=== PATIENT | male | born 1970 | race Caucasian/White ===

== ENCOUNTER → 2016-08-19 | Outpatient (CLI) | payer BC ==
[2016-08-19 20:36] LABS: ALT 29 U/L (21-72); AST 22 U/L (17-59); Alkaline Phosphatase 84 U/L (38-126); Anion Gap 11 mmol/L; Blood Urea Nitrogen 14 mg/dL (9-20); Calcium 9.3 mg/dL (8.4-10.2); Carbon Dioxide 28 mmol/L (22-30); Chloride 104 mmol/L (98-107); Cholesterol 157 mg/dL (<200); Glucose 76 mg/dL (74-99); HDL Cholesterol 50 mg/dL (40-60); Non-African American GFR(MDRD) >60 (>60 ml/min/1.73 sqM); Potassium 4.5 mmol/L (3.5-5.1); Sodium 143 mmol/L (137-145); Total Bilirubin 0.8 mg/dL (0.2-1.3); Total Protein 7.7 g/dL (6.3-8.2); Triglycerides 52 mg/dL (<150)
[2016-08-19 20:43] LABS: CH 30.8; Mean Platelet Volume 8.9; RDW 12.2 % (11.5-15.5)
[2016-08-19 20:46] LABS: Basophils % (A) 0 %; CHCM 34.1; Eosinophils # (A) 0.1 k/uL (0-0.7); Eosinophils % (A) 3 %; HCT 42.2 % (39.0-53.0); HDW 2.45; HGB 14.8 gm/dL (13.0-17.5); Luc # (Auto) 0.09; Luc % (Auto) 2; Lymphocytes # (A) 1.1 k/uL (1.0-4.8); Lymphocytes % (A) 25 %; MCH 31.8 pg (25.0-35.0); MCHC 35.1 g/dL (31.0-37.0); MCV 90.6 fL (80.0-100.0); Monocytes # (A) 0.4 k/uL (0-1.0); Monocytes % (A) 9 %; Neutrophils # (A) 2.7 k/uL (1.3-7.7); Neutrophils % (A) 61 %; RBC 4.66 m/uL (4.30-5.90); WBC 4.4 k/uL (3.8-10.6); WBC (Perox) 4.25
== END | disposition home or self-care (01) ==
LOC: MMGSC 09:24
PROVIDERS: ATTEND Family Medicine
DX: Z00.00 Encounter for general adult medical examination without abnormal findings (principal)
CPT/HCPCS: 36415; 80053; 80061; 84439; 84443; 85025

== ENCOUNTER 2018-06-13 21:32 | Observation (INO) | payer BC ==
--- NOTE | 2018-06-13 23:19 | XR ---
EXAMINATION TYPE: XR KUB DATE OF EXAM: 06/13/2018 COMPARISON: 07/02/2014 HISTORY: Foreign body in the rectum TECHNIQUE: 2 views FINDINGS: Bowel gas pattern is normal. There is no sign of intestinal obstruction or pneumoperitoneum . I see no evidence of a radiopaque foreign body. There are no pathologic calcifications. IMPRESSION: Nonacute abdomen. No sign of a foreign body. No change.
--- NOTE | 2018-06-13 23:46 | ED ---
General Adult HPI - General Chief complaint: Abdominal Pain Stated complaint: fb in buttocks Time Seen by Provider: 06/13/18 22:10 Source: patient, RN notes reviewed Mode of arrival: ambulatory Limitations: no limitations - History of Present Illness Initial comments: This a 47-year-old male who presents emergency Department with a foreign body in his rectum. Patient states he has a 9 inch dildo which is approximately 2-1/ 2 inches in diameter in his rectum. Patient states there is a large flange on the end to prevent her from going all the way in however he pushed it all the way in by accident. Patient states this happened about 2-1/2-3 hours ago. Patient states his aggressively tried to remove it and he has quite a bit of bleeding down there now. Patient denies any abdominal pain but he states that he does have some discomfort in his rectum. - Related Data Home Medications Medication Instructions Recorded Confirmed No Known Home Medications 06/13/18 06/13/18 Allergies Allergy/AdvReac Type Severity Reaction Status Date / Time No Known Allergies Allergy Verified 07/02/14 22:38 Review of Systems ROS Statement: Those systems with pertinent positive or pertinent negative responses have been documented in the HPI. ROS Other: All systems not noted in ROS Statement are negative. Past Medical History Past Medical History: No Reported History History of Any Multi-Drug Resistant Organisms: MRSA Date of last positivie culture/infection: 01/08/18 MDRO Source:: MRSA LEG Past Surgical History: No Surgical Hx Reported Additional Past Surgical History / Comment(s): nasal sx Past Psychological History: No Psychological Hx Reported Smoking Status: Never smoker Past Alcohol Use History: Rare Past Drug Use History: None Reported General Exam - General Exam Comments Initial Comments: GENERAL: Patient is well-developed and well-nourished. Patient is nontoxic and well- hydrated and is in mild distress. EYES: The sclera were anicteric and conjunctiva were pink and moist. Extraocular movements were intact and pupils were equal round and reactive to light. Eyelids were unremarkable. ABDOMEN: Soft and nontender with normal bowel sounds. No palpable organomegaly was noted. There is no palpable pulsatile mass. RECTAL: On rectal exam there was a fair amount of blood coming from the rectum on digital exam I could feel the warm body approximately 3-4 inches in his rectum. SKIN: Skin is clear with no lesions or rashes and otherwise unremarkable. NEUROLOGIC: Patient is alert and oriented x3. Cranial nerves II through XII are grossly intact. Motor and sensory are also intact. MUSCULOSKELETAL: Normal extremities with adequate strength and full range of motion. No lower extremity swelling or edema. No calf tenderness. PSYCHIATRIC: Normal psychiatric evaluation. Limitations: no limitations Course Vital Signs 06/13/18 22:06 Temperature 98.1 F Pulse Rate 81 Respiratory 20 Rate Blood Pressure 104/66 O2 Sat by Pulse 99 Oximetry Medical Decision Making - Medical Decision Making Patient was placed in stirrups and told to hold his knees close to his chest a speculum was used and when I visualize the flange of the pill though I grabbed it with some forceps and gently pulled out it came out relatively easy but with a fair amount of blood. I did a computed tomography scan to rule out any free air there was none seen. Patient had a little bit of rectal bleeding/spoke with Dr. Yu she agreed to observe him overnight and check the morning. Disposition Clinical Impression: Rectal bleeding, Rectal foreign body Disposition: ADMITTED IP TO THIS HOSP Referrals: Yesenia Faith MD [Primary Care Provider] - 1-2 days Time of Disposition: 01:15
--- NOTE | 2018-06-14 00:34 | CT ---
EXAMINATION TYPE: CT abdomen pelvis wo con DATE OF EXAM: 06/14/2018 COMPARISON: 07/03/2014 HISTORY: foreign body CT DLP: 445.6 mGycm Automated exposure control for dose reduction was used. TECHNIQUE: Helical acquisition of images was performed from the lung bases through the pelvis. FINDINGS: Lung bases are clear. There is no pleural effusion. Heart size is normal. Liver spleen pancreas gallbladder appear normal. Bile ducts are not dilated. Stomach appears normal. There is no adrenal mass. There is 4 mm calcification posterior left kidney. There is no hydronephros is. There are tiny calcifications in the right kidney. There is no retroperitoneal adenopathy. Bladder distends smoothly. There is no free fluid in the pelvis. There is no inguinal hernia. I see n o intestinal wall thickening. There are no dilated loops. There is no evidence of a thickened appendi x. There is no mesenteric edema or adenopathy. The bony structures are intact. There is no evidence o f a intestinal foreign body. Bony pelvis is intact. IMPRESSION: NEGATIVE CT SCAN OF THE ABDOMEN AND PELVIS. THERE IS CLEARING OF RIGHT LOWER LOBE PNEUMONIA COMPARED TO OLD EXAM. NO EVIDENCE OF AN ABDOMINAL FOREIGN BODY. NONOBSTRUCTING RENAL CALCIFICATIONS.
[2018-06-14] MEDS ORDERED: SODIUM CHLORIDE 0.9% 1,000 ML IV ONE (01:15)
[2018-06-14 01:24] LABS: Basophils % (A) 0 %; Eosinophils % (A) 1 %; HCT 43.3 % (39.0-53.0); HGB 14.4 gm/dL (13.0-17.5); Lymphocytes % (A) 10 %; MCH 29.4 pg (25.0-35.0); MCHC 33.3 g/dL (31.0-37.0); MCV 88.4 fL (80.0-100.0); Mean Platelet Volume 7.3; Monocytes # (A) 0.5 k/uL (0-1.0); Monocytes % (A) 5 %; Neutrophils # (A) 7.5 k/uL (1.3-7.7); Neutrophils % (A) 83 %; Platelet Count 190 k/uL (150-450); RDW 12.5 % (11.5-15.5); WBC 9.1 k/uL (3.8-10.6)
[2018-06-14 02:27] VITALS: RESP 16
[2018-06-14 07:54] VITALS: BP 101/60; PULSE 63; TEMP 98.5
[2018-06-14 12:48] LABS: Basophils % (A) 0 %; Eosinophils # (A) 0.2 k/uL (0-0.7); Eosinophils % (A) 3 %; HGB 13.6 gm/dL (13.0-17.5); Lymphocytes # (A) 1.3 k/uL (1.0-4.8); Lymphocytes % (A) 24 %; MCH 29.9 pg (25.0-35.0); MCHC 33.2 g/dL (31.0-37.0); Mean Platelet Volume 7.4; Monocytes # (A) 0.4 k/uL (0-1.0); Monocytes % (A) 8 %; Neutrophils # (A) 3.5 k/uL (1.3-7.7); Neutrophils % (A) 63 %; Platelet Count 179 k/uL (150-450); RBC 4.56 m/uL (4.30-5.90); RDW 12.5 % (11.5-15.5); WBC 5.6 k/uL (3.8-10.6)
== END 2018-06-14 14:38 | disposition home or self-care (01) ==
LOC: EC 21:32 → 4SSUR 06-14 01:17
PROVIDERS: ADMIT Surgery Plastic and Reconstructive Surgery; ATTEND Surgery Plastic and Reconstructive Surgery
DX: T18.5XXA Foreign body in anus and rectum, initial encounter (principal); K62.5 Hemorrhage of anus and rectum; Z86.14 Personal history of Methicillin resistant Staphylococcus aureus infection; X58.XXXA Exposure to other specified factors, initial encounter
CPT/HCPCS: 99285; 36415; 85025; 74018; 74176; G0378

== ENCOUNTER → 2024-08-29 | Outpatient (CLI) | payer OTHER ==
--- NOTE | 2024-08-29 15:20 | XR ---
EXAMINATION TYPE: XR knee complete LT DATE OF EXAM: 08/29/2024 2:59 PM COMPARISON: None CLINICAL INDICATION: Male, 53 years old with history of M25.562 Pain left knee; PHH, pain TECHNIQUE: XR knee complete LT 3 views submitted. FINDINGS: Minimal osteophyte formation of the patella and tibial plateau. No evidence of any acute osseous pathology, soft tissue swelling, or joint effusion is noted. IMPRESSION: 1. No acute osseous pathology. 2. Minimal tricompartmental osteoarthritic changes. [facility], , 08/29/2024 3:17 PM
== END | disposition home or self-care (01) ==
LOC: RADXRMAIN 14:20
PROVIDERS: ATTEND Family Medicine
DX: M17.12 Unilateral primary osteoarthritis, left knee (principal)

== ENCOUNTER → 2024-08-30 | Outpatient (CLI) | payer OTHER ==
[2024-08-30 10:34] LABS: Basophils # (A) 0.03 X 10*3/uL (0.00-0.10); Basophils % (A) 0.7 %; Eosinophils # (A) 0.16 X 10*3/uL (0.04-0.35); Eosinophils % (A) 3.7 %; HCT 43.6 % (39.6-50.0); HGB 14.4 g/dL (13.0-17.0); Lymphocytes # (A) 1.21 X 10*3/uL (0.90-5.00); Lymphocytes % (A) 28.1 %; MCH 30.1 pg (27.0-32.0); Mean Platelet Volume 10.8 FL (9.5-12.2); Monocytes # (A) 0.42 X 10*3/uL (0.20-1.00); Monocytes % (A) 9.8 %; NRBC Per 100 WBC 0 X 10*3/uL (0.00-0.01); Neutrophils # (A) 2.47 X 10*3/uL (1.80-7.70); Neutrophils % (A) 57.5 %; Platelet Count 208 X 10*3/uL (140-440); RBC 4.79 X 10*6/uL (4.40-5.60); RDW 11.9 % (11.5-14.5)
[2024-08-30 10:52] LABS: Chol/HDL Ratio 3.73 Ratio; VLDL Calculation 13.74 mg/dL (5.00-40.00)
[2024-08-30 10:53] LABS: ALT 25 U/L (10-49); AST 21 U/L (14-35); Albumin 4.2 g/dL (3.8-4.9); Albumin/Globulin Ratio 1.62 Ratio (1.60-3.17); Alkaline Phosphatase 77 U/L (41-126); Blood Urea Nitrogen 16.4 mg/dL (9.0-27.0); Carbon Dioxide 26.7 mmol/L (21.6-31.8); Chloride 106 mmol/L (96-109); Globulin 2.6 g/dL (1.6-3.3); Glucose 84 mg/dL (70-110); LDL Cholesterol,Calculated 113.6 mg/dL (0.0-131.0); Potassium 4.7 mmol/L (3.5-5.5); Prostate Specific Antigen 0.64 ng/mL (0.000-3.500); Sodium 142 mmol/L (135-145); Total Bilirubin 0.4 mg/dL (0.3-1.2); Total Protein 6.8 g/dL (6.2-8.2)
== END | disposition home or self-care (01) ==
LOC: LABWHC1 07:13
PROVIDERS: ATTEND Family Medicine
DX: Z00.00 Encounter for general adult medical examination without abnormal findings (principal); R14.0 Abdominal distension (gaseous)
CPT/HCPCS: 36415; 80053; 80061; 82784; 83516; 84153; 84443; 85025

== ENCOUNTER → 2024-10-09 | Outpatient (CLI) | payer OTHER ==
--- NOTE | 2024-10-09 12:17 | MR ---
EXAMINATION TYPE: MR knee LT wo con DATE OF EXAM: 10/09/2024 10:57 AM COMPARISON: Outside radiograph 09/30/2024 CLINICAL INDICATION: Male, 53 years old with history of M25.562 L knee pain, Lt knee pain TECHNIQUE: Multiplanar, multisequence imaging of the left knee knee is performed without IV contrast. FINDINGS: The ACL, PCL, and LCL complex appear intact. Mild edema on either side of the otherwise intact MCL fibers. Medial meniscus shows an oblique tear extending through the posterior horn to the junction with the m eniscal body. Overall medial compartment articular cartilage volume is maintained. The lateral meniscus shows an oblique tear largely centered at the meniscal body extending into the p osterior horn. Overall lateral compartment articular cartilage volume is maintained. Patellofemoral compartment articular cartilage volume is largely maintained. Some focal fissuring sug gested along the medial patellar facet. Extensor mechanism is intact. Nonspecific mild anterior soft tissue swelling. There is a trace knee joint effusion and a small leaking Sarah's cyst. Normal popliteal artery anatomy and muscle bulk. No suspicious bone marrow replacement. IMPRESSION: 1. Medial meniscus with oblique tear involving the posterior horn extending to the junction with the meniscal body. 2. Lateral meniscus with an oblique tear centered within the meniscal body but extending into the pos terior horn. 3. Grade 1 MCL sprain. 4. Trace knee joint effusion and a small leaking Sarah's cyst. [facility], Workstation: [facility], 10/09/2024 12:15 PM
== END | disposition home or self-care (01) ==
LOC: RADMRIMAIN 10:20
PROVIDERS: ATTEND Orthopaedic Surgery
DX: S83.242A Other tear of medial meniscus, current injury, left knee, initial encounter (principal); M25.462 Effusion, left knee; S83.411A Sprain of medial collateral ligament of right knee, initial encounter; M71.22 Synovial cyst of popliteal space [Baker], left knee

== ENCOUNTER 2024-11-01 13:28 | Day surgery (SDC) | payer OTHER ==
[2024-10-30 10:19] VITALS: BMI 23.1
[2024-11-01 14:09] VITALS: RESP 16; TEMP 97.5
[2024-11-01] MEDS: LACTATED RINGERS 1,000 ML IV SCH (14:09)
[2024-11-01] MEDS: IV FLUID CONTINUATION 1,000 ML IV ONE (14:10)
[2024-11-01] MEDS: LIDOCAINE 1% (10MG/ML) FOR IV START INTRADERMA STA (14:10)
[2024-11-01] MEDS ORDERED: PROPOFOL 10 MG/ML 20 ML VIAL IV ONE (14:58)
--- NOTE | 2024-11-01 15:16 | P.PCN ---
Date of Procedure: 11/01/24 Procedure(s) Performed: BRIEF HISTORY: Patient is a 53-year-old pleasant white male scheduled for an elective colonoscopy as a part of screening for colon cancer. PROCEDURE PERFORMED: Colonoscopy. PREOPERATIVE DIAGNOSIS: Screening for colon cancer. IV sedation per Anesthesia. PROCEDURE: After informed consent was obtained, the patient, was brought into the endoscopy unit. IV sedation was administered by Anesthesia under continuous monitoring. Digital rectal examination was normal. Initially the Olympus CF-160 flexible video colonoscope was then inserted in the rectum, gradually advanced into the cecum without any difficulty. Careful examination was performed as the scope was gradually being withdrawn. Ileocecal valve and the appendiceal orifice were visualized and appeared normal. Prep was excellent. Mucosa of the cecum, ascending colon, transverse colon, descending colon, sigmoid colon, and rectum appeared normal. Retroflexion was performed in the rectum and no lesions were seen. The patient tolerated the procedure well. IMPRESSION: Normal-appearing colon from rectum to cecum with no evidence of colorectal neoplasia. RECOMMENDATIONS: Findings of this examination were discussed with the patient as well as his family. He was advised to have repeat screening colonoscopy in 10 years..
[2024-11-01 15:58] VITALS: BP 105/64; PULSE 56
== END 2024-11-01 15:59 | disposition home or self-care (01) ==
LOC: ORWHC2ENDO 13:28
PROVIDERS: ATTEND Internal Medicine Gastroenterology
DX: Z12.11 Encounter for screening for malignant neoplasm of colon (principal)
CPT/HCPCS: 45378; J2704